=== PATIENT | male | born 1965 | race Two or more races ===

== ENCOUNTER 2018-12-13 11:37 | Emergency (ER) | payer BC ==
[~2018-12-13] VITALS: Ht 170.2 cm; Wt 88.5 kg
--- NOTE | 2018-12-13 12:38 | NUR ---
Patient discharged to home in stable conditon. Written and verbal after care instructions given. Patient verbalizes understanding of instructions.
== END 2018-12-13 12:39 | disposition home or self-care (01) ==
LOC: ER 11:37
DX: H00.014 Hordeolum externum left upper eyelid (principal); H10.9 Unspecified conjunctivitis
CPT/HCPCS: A4663

== ENCOUNTER 2019-02-16 17:23 | Emergency (ER) | payer BC ==
[~2019-02-16] VITALS: Ht 170.2 cm; Wt 90.7 kg
[2019-02-16] MEDS ORDERED: HYDROMORPHONE 1 MG/1 ML DISP.SYRIN ONE (17:50)
[2019-02-16] MEDS ORDERED: ONDANSETRON 4 MG/2 ML VIAL ONE (17:50)
[2019-02-16] MEDS: IV NORMAL SALINE 1000 ML BAG IV ONE ×2 (17:51→19:54)
[2019-02-16] MEDS: ONDANSETRON 4 MG/2 ML VIAL IV ONE (17:51)
[2019-02-16] MEDS: HYDROMORPHONE 1 MG/1 ML DISP.SYRIN IV ONE (17:52)
[2019-02-16 17:53] LABS: BASOPHILS % (AUTO) 0.3 % (0.0-2.0); EOSINOPHILS # (AUTO) 0.1 K/uL (0.0-0.7); EOSINOPHILS % (AUTO) 0.8 % (0.0-7.0); HEMATOCRIT 44.1 % (36.7-47.1); HEMOGLOBIN 15.3 g/dL (12.5-16.3); LYMPHOCYTES # (AUTO) 1.2 K/uL (20.0-40.0); LYMPHOCYTES % (AUTO) 12.1 % (20.5-51.5); MEAN CORPUSCULAR HEMOGLOBIN 29.4 uug (23.8-33.4); MEAN CORPUSCULAR HGB CONC 35 g/dL (32.5-36.3); MEAN CORPUSCULAR VOLUME 84.9 fL (73.0-96.2); MONOCYTES # (AUTO) 0.7 K/uL (2.0-10.0); MONOCYTES % (AUTO) 7.7 % (0.0-11.0); NEUTROPHILS # (AUTO) 7.6 K/uL (1.8-8.9); NEUTROPHILS % (AUTO) 79.1 % (38.5-71.5); PLATELET COUNT (AUTO) 221 K/uL (152-348); RED BLOOD CELL COUNT(AUTO) 5.19 MIL/uL (4.06-5.63); WHITE BLOOD COUNT (AUTO) 9.6 K/uL (3.6-10.2)
[2019-02-16 18:01] LABS: POTASSIUM 3.3 mmol/L (3.5-5.1)
[2019-02-16 18:06] LABS: BILIRUBIN,DIRECT 0.2 mg/dL (0.0-0.2); BILIRUBIN,TOTAL 0.8 mg/dL (0.2-1.0); TOTAL PROTEIN, SERUM 7.6 g/dL (6.4-8.2)
--- NOTE | 2019-02-16 18:30 | NUR ---
Dr Mendiola is at bedside & re-evaluating the patient.
--- NOTE | 2019-02-16 18:41 | NUR ---
Patient is resting comfortably in bed with eyes closed. Spouse is at bedside.
[2019-02-16 19:34] LABS: *BILIRUBIN,URIN NEGATIVE (NEGATIVE); *BLOOD, URINE 1+ (NEGATIVE); *CLARITY,URINE CLEAR (CLEAR); *COLOR,URINE YELLOW (YELLOW); *KETONES,URINE NEGATIVE (NEGATIVE); *UROBILINOGEN,URINE 0.2 E.U./dl (NORMAL); LEUKOCYTE ESTERASE ,URINE NEGATIVE (NEGATIVE); NITRITE, URINE NEGATIVE (NEGATIVE); UGLUCOSE NEGATIVE (NEGATIVE)
[2019-02-16] MEDS ORDERED: ACETAMINOPHEN ES 500 MG TABLET ONE (19:41)
[2019-02-16 19:42] LABS: BACTERIA,URINE R /HPF (NONE SEEN); WBC,URINE 0-3 /HPF (0-3)
[2019-02-16] MEDS ORDERED: METRONIDAZOLE 500 MG TABLET ONE (19:42)
[2019-02-16] MEDS ORDERED: LEVOFLOXACIN 750 MG TABLET ONE (19:42)
[2019-02-16 19:43] LABS: MUCUS,URINE MANY /LPF (0-FEW)
[2019-02-16] MEDS: ACETAMINOPHEN ES 500 MG TABLET PO ONE (19:54)
[2019-02-16] MEDS: LEVOFLOXACIN 750 MG TABLET PO ONE (19:54)
[2019-02-16] MEDS: METRONIDAZOLE 500 MG TABLET PO ONE (19:54)
--- NOTE | 2019-02-16 20:40 | NUR ---
Patient discharged to home in stable conditon. Written and verbal after care instructions given. Patient verbalizes understanding of instructions. Patient ambulated with stable gait.
[2019-02-16 20:41] VITALS: BP 105/89
== END 2019-02-16 20:42 | disposition home or self-care (01) ==
LOC: ER 17:23
DX: R10.33 Periumbilical pain (principal); R11.2 Nausea with vomiting, unspecified; R19.7 Diarrhea, unspecified; Z90.49 Acquired absence of other specified parts of digestive tract
CPT/HCPCS: 36415; 71045; 74176; 80048; 80076; 81001; 83605; 83690; 84484; 85025; 85730; 87040 ×2; 93005; 96361; 96374; 96375; 99284; J1170; J2405; 70030-TC; A4663; A9150; J7030

== ENCOUNTER 2020-01-17 08:27 | Emergency (ER) | payer BC ==
[~2020-01-17] VITALS: Ht 170.2 cm; Wt 90.7 kg
[2020-01-17 08:43] VITALS: BP 123/70
--- NOTE | 2020-01-17 08:44 | NUR ---
Patient discharged to home in stable conditon. Written and verbal after care instructions given. Patient verbalizes understanding of instructions.
== END 2020-01-17 08:44 | disposition home or self-care (01) ==
LOC: ER 08:27
DX: Z00.00 Encounter for general adult medical examination without abnormal findings (principal); Z90.49 Acquired absence of other specified parts of digestive tract
CPT/HCPCS: A4663

== ENCOUNTER 2020-10-25 01:06 | Emergency (ER) | payer BC ==
[~2020-10-25] VITALS: Ht 170.2 cm; Wt 90.7 kg
--- NOTE | 2020-10-25 02:24 | NUR ---
Patient discharged to home in stable condition. Written and verbal after care instructions given. Patient verbalizes understanding of instructions. Stressed follow up or return to ER for worsening s/s.
[2020-10-25 02:25] VITALS: BP 135/87
== END 2020-10-25 02:25 | disposition home or self-care (01) ==
LOC: ER 01:09
DX: U07.1 COVID-19 (principal); Z87.19 Personal history of other diseases of the digestive system
CPT/HCPCS: 71045; A4663

== ENCOUNTER 2020-11-02 18:48 | Emergency (ER) | payer BC ==
[~2020-11-02] VITALS: Ht 170.2 cm; Wt 92.5 kg
[2020-11-02] MEDS ORDERED: DM/P295L17 PO (19:44)
[2020-11-02] MEDS ORDERED: ACET-2605 PO (19:44)
[2020-11-02] MEDS ORDERED: ONDANSETRON ODT 4 MG TAB.RAPDIS SL ONE (20:00)
--- NOTE | 2020-11-02 20:08 | NUR ---
ACCU MBRLM=710, 8MG ZOFRAN SL ADMINISTERED, PT STATED HE HAD NO URINE AND REQUESTED WATER INSTEAD. DR CHAVEZ NOTIFIED OF NZ=[id number].
[2020-11-02] MEDS ORDERED: ONDANSETRON ODT 4 MG TAB.RAPDIS ONE (20:10)
[2020-11-02 20:47] LABS: *BILIRUBIN,URIN 1+ (NEGATIVE); *CLARITY,URINE CLEAR (CLEAR); *COLOR,URINE DARK YELLOW (YELLOW); *KETONES,URINE TRACE (NEGATIVE); LEUKOCYTE ESTERASE ,URINE NEGATIVE (NEGATIVE); NITRITE, URINE NEGATIVE (NEGATIVE); PH,URINE 5.5 (5.0-8.0); UGLUCOSE NEGATIVE (NEGATIVE)
[2020-11-02 20:54] LABS: *BLOOD, URINE TRACE LYSED (NEGATIVE)
--- NOTE | 2020-11-02 21:30 | NUR ---
Patient discharged to home in stable condition. Written and verbal after care instructions,rx x1 given. Patient verbalizes understanding of instructions. Stressed follow up or return to ER for worsening s/s.
[2020-11-02 21:45] VITALS: BP 125/67
[2020-11-02 23:26] LABS: BACTERIA,URINE NONE SEEN /HPF (NONE SEEN); RBC,URINE 0-3 /HPF (0-3); WBC,URINE 0-3 /HPF (0-3)
[2020-11-02 23:27] LABS: MUCUS,URINE MANY /LPF (0-FEW); SQUAMOUS EPITHELIAL CELL,UR FEW /HPF (NONE SEEN); URINE AMORPHOUS URATE FEW /HPF
== END 2020-11-02 21:30 | disposition home or self-care (01) ==
LOC: ER 18:51
DX: U07.1 COVID-19 (principal); E86.0 Dehydration; R11.2 Nausea with vomiting, unspecified
CPT/HCPCS: 71045; A4663; Q0162

== ENCOUNTER 2021-06-24 05:52 | Emergency (ER) | payer BC ==
[~2021-06-24] VITALS: Ht 170.2 cm; Wt 90.7 kg
[~2021-06-24 05:52] MED LIST: ACET-2605 PO; DM/P295L17 PO
--- NOTE | 2021-06-24 06:02 | NUR ---
Pt ambulated to ER with c/o bilateral flank pain and painful urination PL:5/10, urgency, for a few months but got worse over the last 3 days. A/O x4, no SOB or labored breathing, afebrile. Denies any CP/pressure.
--- NOTE | 2021-06-24 06:05 | NUR ---
Dr. Castillo at bedside, MSE in progress.
[2021-06-24 06:18] LABS: *BILIRUBIN,URIN NEGATIVE (NEGATIVE); *BLOOD, URINE NEGATIVE (NEGATIVE); *CLARITY,URINE CLEAR (CLEAR); *COLOR,URINE YELLOW (YELLOW); *KETONES,URINE NEGATIVE (NEGATIVE); *UROBILINOGEN,URINE 0.2 E.U./dl (NORMAL); LEUKOCYTE ESTERASE ,URINE NEGATIVE (NEGATIVE); NITRITE, URINE NEGATIVE (NEGATIVE); PH,URINE 5.5 (5.0-8.0); UGLUCOSE NEGATIVE (NEGATIVE)
[2021-06-24] MEDS ORDERED: TAMS-3 PO ×2 (06:39→06:45)
--- NOTE | 2021-06-24 06:50 | NUR ---
Patient discharged to home in stable condition. A/O x4, no SOB or labored breathing, afebrile. Denies any pain/discomfort. Written and verbal after care instructions given. Patient verbalizes understanding of instructions. Stressed follow up or return to ER for worsening s/s. Steady gait.
[2021-06-24 06:51] VITALS: BP 125/77
== END 2021-06-24 06:51 | disposition home or self-care (01) ==
LOC: ER 05:53
DX: N42.9 Disorder of prostate, unspecified (principal); Z86.16 Personal history of COVID-19
CPT/HCPCS: A4663

== ENCOUNTER 2021-10-29 17:44 | Emergency (ER) | payer BC ==
[~2021-10-29 17:44] MED LIST changes: +TAMS-3 PO
--- NOTE | 2021-10-29 18:14 | NUR ---
PT NOT IN WAITING ROOM WHEN CALLED.
--- NOTE | 2021-10-29 19:10 | NUR ---
Patient was called to be triaged but was not present in the waiting room.
--- NOTE | 2021-10-29 20:00 | NUR ---
PATIENT WAS NOT SEEN BY ERMD OR TRIAGED.
== END 2021-10-29 20:00 | disposition left against medical advice (07) ==
LOC: ER 17:46
DX: Z53.21 Procedure and treatment not carried out due to patient leaving prior to being seen by health care provider (principal)

== ENCOUNTER 2022-05-12 00:50 | Emergency (ER) | payer BC ==
[~2022-05-12] VITALS: Ht 170.2 cm; Wt 92.1 kg
--- NOTE | 2022-05-12 01:08 | NUR ---
Patient walked into ER c/o sorethroat, bodyache, CHA, chills x1 day. Patient stated he just arrived from [facility] on the morning of 05/11/2022.
--- NOTE | 2022-05-12 01:30 | NUR ---
COVID swab and strep swab done and sent to lab.
[2022-05-12] MEDS ORDERED: OXYC-128 PO (02:12)
--- NOTE | 2022-05-12 03:23 | NUR ---
Patient discharged to home via private vehicle in stable condition. VSS. NAD. Ambulatory with steady gait. Written and verbal after care instructions given. Patient verbalizes understanding of instructions. Stressed follow up or return to ER for worsening s/s.
[2022-05-12 03:27] VITALS: BP 125/75
== END 2022-05-12 03:25 | disposition home or self-care (01) ==
LOC: ER 00:55
DX: J02.8 Acute pharyngitis due to other specified organisms (principal); Z20.822 Contact with and (suspected) exposure to COVID-19; N40.0 Benign prostatic hyperplasia without lower urinary tract symptoms; Z79.899 Other long term (current) drug therapy
CPT/HCPCS: 86403; 87070; A4663

== ENCOUNTER 2023-02-03 22:33 | Emergency (ER) | payer BC ==
[~2023-02-03] VITALS: Ht 170.2 cm; Wt 89.8 kg
[~2023-02-03 22:33] MED LIST changes: +OXYC-128 PO
[2023-02-03] MEDS ORDERED: ACETAMINOPHEN ES 500 MG TABLET ONE (23:52)
[2023-02-04] MEDS ORDERED: ACETAMINOPHEN ES 500 MG TABLET PO ONE
[2023-02-04] MEDS ORDERED: D-ME473S63 PO (01:48)
--- NOTE | 2023-02-04 01:52 | NUR ---
Patient discharged to home in stable condition. Written and verbal after care instructions given. Patient verbalizes understanding of instructions. Stressed follow up or return to ER for worsening s/s. Patient is a/ox4,NAD noted. patient ambulated with steady gait, denies SOB
[2023-02-04 01:53] VITALS: BP 122/76
== END 2023-02-04 01:53 | disposition home or self-care (01) ==
LOC: ER 22:35
DX: J06.9 Acute upper respiratory infection, unspecified (principal); R07.89 Other chest pain; Z90.49 Acquired absence of other specified parts of digestive tract; Z79.899 Other long term (current) drug therapy; Z20.822 Contact with and (suspected) exposure to COVID-19
CPT/HCPCS: 71045; A4663; A9150